=== PATIENT | female | born 1955 | race Caucasian/White ===

== ENCOUNTER 2018-09-12 11:24 | Emergency (ER) | payer OTHER ==
--- NOTE | 2018-09-12 11:56 | EDPHY ---
H & P Time Seen by Provider: 09/12/18 11:40 HPI/ROS: CHIEF COMPLAINT: Flank pain, fever HISTORY OF PRESENT ILLNESS: Patient is a 62-year-old female with a history of pyelonephritis and previous obstructing kidney stone who presents emergency department right flank pain fever. Her symptoms started on Monday. She describes general body aches and fever. She had increased pain in her right flank. However over the last 2 days her symptoms have improved. That was until this morning when her symptoms again worsened. Her fever returned. She developed chills. She has moderate right flank pain. It is not worse with movement. She denies dysuria or frequency. No hematuria. She has no cough or shortness of breath. No chest pain. No abdominal pain. She had nausea but no vomiting. No diarrhea. REVIEW OF SYSTEMS: 10 systems were reveiwed and are negative with the exception of the elements mentioned in the history of present illness. Past Medical/Surgical History: Includes hypertension, previous kidney stones, depression Past surgical history: Lithotripsy, , appendectomy Social history: Patient does not smoke Smoking Status: Never smoked Physical Exam: Vitals noted. 37.5, 149/86, 93, 22, 90% on room air GENERAL: No acute distress, alert. HEENT: Eyes normal to inspection, normal pharynx, no signs of dehydration. NECK: Normal, supple. RESPIRATORY: Clear to auscultation bilaterally, no rales, rhonchi or wheezing. CVS: Regular rate and rhythm, no rubs, murmurs, or gallops. ABDOMEN: Soft, nontender, nondistended, no organomegaly. Normal. BACK: Normal to inspection, no CVA tenderness. SKIN: Normal color, no rash, warm, dry. No pallor. EXTREMITIES: No pedal edema, no calf tenderness, no Homans sign or cords, no joint swelling. NEURO/PSYCH: Alert and oriented, normal mood and affect, normal motor sensory exam. Constitutional: Initial Vital Signs Temperature (C) 37.5 C 09/12/18 11:31 Heart Rate 93 09/12/18 11:31 Respiratory Rate 22 H 09/12/18 11:31 Blood Pressure 149/86 H 09/12/18 11:31 O2 Sat (%) 90 L 09/12/18 11:31 O2 Delivery Mode Room Air Allergies/Adverse Reactions: No Known Allergies Allergy (Unverified 09/12/18 11:34) Home Medications: Medication Instructions Recorded Lamictal 09/12/18 Norvasc 10 mg (*) 09/12/18 Seroquel 09/12/18 Medical Decision Making - Diagnostics Imaging Results: Imaging Impressions Abdomen/Pelvis CT 09/12/18 11:56 Impression: 1. Bilateral nonobstructive nephrolithiasis. 2. No ureterolithiasis or hydronephrosis. 3. Constipation. 4. Previous appendectomy. Attention: This CT examination is specifically designed to evaluate patients who are clinically suspected of having acute obstructive uropathy. This examination does not use radiographic contrast, and as such, provides only a limited evaluation of the abdomen, pelvis and retroperitoneum. If there is further clinical suspicion for pathological conditions other than obstructive uropathy, a complete CT evaluation of the abdomen and pelvis utilizing intravenous, oral, and rectal contrast should be considered. Findings and recommendations discussed with Emergency Department physician, Brianne Burkett at 1234 hour, 09/12/2018. Final report concurs with initial preliminary interpretation. Chest X-Ray 09/12/18 11:58 Impression: Perihilar bronchial wall thickening, with some minimal bilateral linear scarring versus diskoid subsegmental atelectasis. ED Course/Re-evaluation: In the emergency department I discussed possible etiologies with the patient. I answered all her questions. IV was placed. Laboratory studies including blood cultures were obtained. Patient had chest x-ray due to her temperature an oxygen saturation at 90%. Because she has had previous obstructing kidney stone and pyelonephritis CT of the abdomen pelvis without contrast was ordered. UA is negative. Lactic acid is 3.0. Patient was given 1 L of normal saline for hydration. Chest x-ray: No focal infiltrate or effusion. Please refer the dictated report CT panel is unremarkable. LFTs are notable for an elevated alk-phos. Patient' s influenza screen is negative. White count is normal at 4. Hematocrit and platelets are unremarkable 1329: On recheck the patient was feeling better. She had no respiratory distress. Repeat lactate was 1.5. 1345: On recheck the patient was feeling better. She had no flank pain. She had no respiratory distress. Oxygen saturation was noted to be 90%. I discussed the workup thus far. I discussed other diagnoses including pulmonary embolus. Patient consented to CT angiogram of the chest. CT angiogram chest: Please refer the dictated report by Dr. Briscoe. There is no pneumonia. No central pulmonary embolus. No significant abnormality noted. 1525: I discussed the results with the patient. On recheck the patient was feeling well. She had no complaints. She is afebrile. Oxygen saturation was 93%. I gave the patient disposition options. She felt comfortable being discharged. She will follow up with primary care physician 1-2 days. She will return with worsening symptoms. Differential Diagnosis: My differential includes but is not limited to pyelonephritis, kidney stone, pneumonia, pulmonary embolus, bacteremia, sepsis - Data Points Laboratory Results: 09/12/18 09/12/18 09/12/18 13:29 12:20 12:18 POC Sodium 143 mEq/L mEq/L (135-145) POC Potassium 3.8 mEq/L mEq/L (3.3-5.0) POC Chloride 103.0 mEq/L mEq/L (97-110) POC Total CO2 25 mEq/L mEq/L (22-31) POC BUN 14 mg/dL mg/dL (7-23) POC Creatinine 1.0 mg/dL mg/dL (0.6-1.0) POC Glucose 135 mg/dL H mg/dL (70-100) POC Lactic Acid Afshin 1.6 mmol/L D mmol/L 3.0 mmol/L H mmol/L (0.7-2.1) (0.7-2.1) POC Calcium 9.7 mg/dL mg/dL (8.5-10.4) POC Total Bilirubin 0.6 mg/dL mg/dL (0.1-1.4) POC AST 43 IU/L IU/L (14-46) POC ALT 39 IU/L IU/L (9-52) POC Alk Phosphatase 127 IU/L H IU/L (38-126) POC Total Protein 7.0 g/dL g/dL (6.3-8.2) POC Albumin 3.8 g/dL g/dL (3.5-5.0) Medications Given: Discontinued Medications Sodium Chloride (Ns) 1,000 mls @ 0 mls/hr IV EDNOW ONE; Wide Open PRN Reason: Protocol Stop: 09/12/18 12:13 Last Admin: 09/12/18 12:15 Dose: 1,000 mls Ketorolac Tromethamine (Toradol) 15 mg IVP EDNOW ONE Stop: 09/12/18 11:59 Last Admin: 09/12/18 12:41 Dose: 15 mg Point of Care Test Results: CBC CBC Collection Date 09/12/18 CBC Collection Time 12:30 WBC 4.3 RBC 4.45 HGB 13.6 HCT 40.1 PLT 247 Neut # 3.6 Neut 85.0 LYMPH # 0.6 LYMPH 13.3 Other WBC # 0.1 Other WBC 1.7 MCV 90.1 Chemistry 09/12/18 12:18 POC Sodium 143 mEq/L mEq/L (135-145) POC Potassium 3.8 mEq/L mEq/L (3.3-5.0) POC Chloride 103.0 mEq/L mEq/L (97-110) POC Total CO2 25 mEq/L mEq/L (22-31) POC BUN 14 mg/dL mg/dL (7-23) POC Creatinine 1.0 mg/dL mg/dL (0.6-1.0) POC Glucose 135 mg/dL H mg/dL (70-100) POC Calcium 9.7 mg/dL mg/dL (8.5-10.4) POC Total Bilirubin 0.6 mg/dL mg/dL (0.1-1.4) POC AST 43 IU/L IU/L (14-46) POC ALT 39 IU/L IU/L (9-52) POC Alk Phosphatase 127 IU/L H IU/L (38-126) POC Total Protein 7.0 g/dL g/dL (6.3-8.2) POC Albumin 3.8 g/dL g/dL (3.5-5.0) Blood Gas/Lactic Acid-Venous 09/12/18 09/12/18 13:29 12:20 POC Lactic Acid Afshin 1.6 mmol/L D mmol/L 3.0 mmol/L H mmol/L (0.7-2.1) (0.7-2.1) Influenza PCR Flu Nasal Swab Collection Date 09/12/18 Flu Nasal Swab Collection Time 12:35 Influenza A Result Not Detected Influenza B Result Not Detected Urine Dip Collection Date 09/12/18 Collection Time 11:50 Specific [place] (1.002-1.030) 1.025 PH (5.0-7.5) 7.0 Leukocytes (Negative) Negative Nitrites (Negative) Negative Protein (Negative) Negative Glucose (Negative) Negative Ketones (Negative) Negative Urobilnogen (0.2-1.0 EU) 0.2 Bilirubin (Negative) Negative Blood (Negative) Negative Departure - Departure Disposition: Home, Routine, Self-Care Clinical Impression: Flank pain Fever Qualifiers: Fever type: unspecified Qualified Code(s): R50.9 - Fever, unspecified Condition: Good Instructions: Flank Pain (ED) Additional Instructions: Return with increasing fatigue, fever, headache, shortness of breath, vomiting or any other concerns. You need close follow-up with her primary care physician. You should be seen on either or Monday. Referrals: Pat Gray MD [Primary Care Provider] - 1-2 days without fail Stand Alone Forms: Work Excuse
[2018-09-12] MEDS ORDERED: KETOROLAC 15 MG/1 ML SDV IVP ONE (11:58)
[2018-09-12] MEDS ORDERED: NS 1,000 ML IV ONE (12:12)
[2018-09-12] MEDS ORDERED: IOPAMIDOL (ISOVUE-370) 150 ML BTL IV ONE (13:55)
[2018-09-12 14:28] VITALS: BP 139/91
== END 2018-09-12 14:45 | disposition home or self-care (01) ==
LOC: CED 11:24
DX: B95.7 Other staphylococcus as the cause of diseases classified elsewhere (principal); R10.9 Unspecified abdominal pain; R50.9 Fever, unspecified; E86.9 Volume depletion, unspecified
CPT/HCPCS: 71046-PO; 71275-PO; 74176-PO; 80053-ER; 83605-ER; 96361-ER; 96374-ER; J1885; Q9967